=== PATIENT | male | born 1970 | race Caucasian/White ===

== ENCOUNTER 2018-02-18 18:13 | Outpatient (REF) | payer MEDICAID, SELFPAY ==
[2018-02-18 21:50] LABS: HCT 44.1 % (40.0-50.0); HGB 13.9 g/dL (13.5-17.5); Mean Corp. HGB Concentration 31.5 g/dL (32.0-36.0); Mean Platelet Volume 11.2 fL (8.0-11.0); Platelet Count 187 x1000/uL (130-400); RBC 4.64 m/cumm (4.50-6.00); RBC Distribution Width 13.1 % (11.8-14.1); White Blood Cell Count 6.14 k/cumm (4.4-10.8)
[2018-02-18 22:13] LABS: ALT 27 U/L (12-78); AST 36 U/L (15-37); Albumin 3.4 g/dL (3.4-5.0); Alkaline Phosphatase 101 U/L (46-116); Anion Gap 3.9 mmol/L (3-11); BUN 10 mg/dL (7-18); Bilirubin, Total 0.3 mg/dL (0.2-1.0); CO2 36.1 mmol/L (21.0-32.0); CREATININE 1.05 mg/dL (0.70-1.30); Calcium 8.9 mg/dL (8.5-10.1); Chloride 102 mmol/L (98-107); Glucose 94 mg/dL (70-100); Potassium 4.2 mmol/L (3.5-5.1); Sodium 142 mmol/L (136-145); Total Protein 7.2 g/dL (6.4-8.2)
== END 2018-02-18 18:33 ==
LOC: NCHCN 18:13
PROVIDERS: PCP Family Medicine; Visit Provider Nurse Practitioner Family
DX: K74.60 Unspecified cirrhosis of liver (principal); B19.20 Unspecified viral hepatitis C without hepatic coma; R60.0 Localized edema; R01.1 Cardiac murmur, unspecified; E66.9 Obesity, unspecified; Z13.1 Encounter for screening for diabetes mellitus
CPT/HCPCS: 80053; 85027; 83036; 85610

== ENCOUNTER 2021-06-27 21:57 | Outpatient (REF) | payer MEDICAID, SELFPAY ==
[2021-06-27 21:41] LABS: HCT 43.4 % (40.0-50.0); HGB 13.7 g/dL (13.5-17.5); MCH 28.6 pg (27.0-33.0); MCHC 31.6 % (32.0-36.0); MCV 91 fL (80-95); MPV 10.3 fL (8.0-11.0); Platelet Count 248 10^3/uL (130-400); RBC 4.79 10^6/uL (4.36-5.78); RDW 13.7 % (11.8-14.1); RDW-SD 46.5 fL; WBC 7.32 10^3/uL (4.4-10.8)
[2021-06-27 21:54] LABS: Prothrombin Time 9.9 sec (9.3-11.0)
[2021-06-27 21:56] LABS: Hemoglobin A1C 5.7 % (<5.7)
--- OUTSIDE RECORDS SUMMARY | 2021-06-27 22:00 | XMS_ITS | CCD ---
:1970 Author Care Team Providers Name Role Phone ERMELINDA HUNT ENGRAVER JEWELRY Attending Physician Unavailable Vital Signs Unknown or Not Available. Allergies Allergy Code Allergy Type Reaction Status [facility] [id number] Drug allergy rash, red line went up arm A ctive Procedures Procedure Code Procedure Type Date Arthrocentesis Aspir&/Inj Major Jt/Bursa w/o US CPT 11/09/2020 History of Immunizations Unknown or Not Available. Problems Unknown or Not Available. Results Unknown or Not Available. Active Medications Medication Code Dose Units Frequency Route Modification Start Date/Time Allopurinol 19720221 100 MILLIGRAMS DAILY ORAL 9 100MG Oral 11:52 Tablet Prescription Detail TAKE 100 MILLIGRAMS ORAL NGUYEN LY Folic Acid 1MG Oral [id number] 1 MILLIGRAMS DAILY BY MOUTH 06/27/2014 12:14 Tablet Prescription Detail TAKE 1 MILLIGRAMS BY MOUTH D AILY Methadone 5MG [id number] 5 MILLIGRAMS QD WITH 160MG ORAL 06/27/2014 12:14 Oral Tablet DOSE Prescription Detail TAKE 5 MILLIGRAMS ORAL QD WI TH 160MG DOSE Methadone HCl 40MG [id number] 160 MILLIGRAMS QD SEE OTHER ORAL 06/27/2014 12:14 Oral Tablet for METHADONE ORDER Suspension Prescription Detail TAKE 160 MILLIGRAMS ORAL QD SEE OTHER METHADONE ORDER PriLOSEC 20MG Oral Capsule, [id number] 20 MILLIGRAMS DAILY ORAL 06/27/2014 12:14 Delayed Release Prescription Detail TAKE 20 MILLIGRAMS ORAL LORETTA Y Medications Administered During Visit Unknown or Not Available. Encounters Encounter Diagnosis Diagnosis Code Start Date Bilateral primary osteoarthritis of knee M170 11/09/2020 Social History Smoking Status Code Start Date End Date Never smoker [id number] Patient Decision Aids Unknown or Not Available. Discharge Instructions You were admitted to [facility] on 11/09/2020 11:04 with a principal diagnosis of Bilateral primary osteoarth ritis of knee You had the following procedures done: Arthrocentesis Aspir&/Inj Major Jt/Bursa w/o US You were discharged from [facility] on 11/09/2020 11:04 Should you have any questions prior to d ischarge, please contact a member of your healthcare team. If you have left the ho spital and have any questions, please contact your primary care physician. Chief Complaint and Reason For Visit Unknown or Not Available. Function Status Unknown or Not Available. Plan of Care Unknown or Not Available. Referral/Transition of Care Unknown or Not Available.
--- OUTSIDE RECORDS SUMMARY | 2021-06-27 22:00 | XMS_ITS | CCD ---
:1970 Author Care Team Providers Name Role Phone ED ZAMAN MD Attending Physician Unavailable Vital Signs Unknown or Not Available. Allergies Allergy Code Allergy Type Reaction Status [facility] 585948 Drug allergy rash, red line went up arm A ctive Procedures Procedure Code Procedure Type Date Arthrocentesis Aspir&/[place] [address] CPT 10/13/2020 History of Immunizations Unknown or Not Available. Problems Unknown or Not Available. Results Unknown or Not Available. Active Medications Medication Code Dose Units Frequency Route Modification Start Date/Time Allopurinol 19720221 100 MILLIGRAMS DAILY ORAL 9 100MG Oral 11:52 Tablet Prescription Detail TAKE 100 MILLIGRAMS ORAL NGUYEN LY Folic Acid 1MG Oral [id number] 1 MILLIGRAMS DAILY BY MOUTH 06/27/2014 12:14 Tablet Prescription Detail TAKE 1 MILLIGRAMS BY MOUTH D AILY Methadone 5MG [id number] 5 MILLIGRAMS QD WITH 160MG ORAL 06/27/2014 12:14 Oral Tablet DOSE Prescription Detail TAKE 5 MILLIGRAMS ORAL QD WI TH 160MG DOSE Methadone HCl 40MG [id number] 160 MILLIGRAMS QD SEE OTHER ORAL 06/27/2014 12:14 Oral Tablet for METHADONE ORDER Suspension Prescription Detail TAKE 160 MILLIGRAMS ORAL QD SEE OTHER METHADONE ORDER PriLOSEC 20MG Oral Capsule, [id number] 20 MILLIGRAMS DAILY ORAL 06/27/2014 12:14 Delayed Release Prescription Detail TAKE 20 MILLIGRAMS ORAL LORETTA Y Medications Administered During Visit Unknown or Not Available. Encounters Encounter Diagnosis Diagnosis Code Start Date Bilateral primary osteoarthritis of knee M170 10/13/2020 Social History Smoking Status Code Start Date End Date Never smoker [id number] Patient Decision Aids Unknown or Not Available. Discharge Instructions You were admitted to [facility] on 10/13/2020 10:10 with a principal diagnosis of Bilateral primary osteoarth ritis of knee You had the following procedures done: Arthrocentesis Aspir&/Inj Major Jt/Bursa w/o US You were discharged from [facility] on 10/13/2020 10:10 Should you have any questions prior to [...]
--- OUTSIDE RECORDS SUMMARY | 2021-06-27 22:00 | XMS_ITS | CCD ---
:1970 Author Care Team Providers Name Role Phone ED ZAMAN MD Attending Physician Unavailable Vital Signs Unknown or Not Available. Allergies Allergy Code Allergy Type Reaction Status [facility] 563003 Drug allergy rash, red line went up arm A ctive Procedures Procedure Code Procedure Type Date Arthrocentesis Aspir&/[place] [address] CPT 10/27/2020 History of Immunizations Unknown or Not Available. Problems Unknown or Not Available. Results Unknown or Not Available. Active Medications Medication Code Dose Units Frequency Route Modification Start Date/Time Allopurinol 19720221 100 MILLIGRAMS DAILY ORAL 9 100MG Oral 11:52 Tablet Prescription Detail TAKE 100 MILLIGRAMS ORAL NGUYEN LY Folic Acid 1MG Oral 756280 1 MILLIGRAMS DAILY BY MOUTH 06/27/2014 12:14 Tablet Prescription Detail TAKE 1 MILLIGRAMS BY MOUTH D AILY Methadone 5MG [id number] 5 MILLIGRAMS QD WITH 160MG ORAL 06/27/2014 12:14 Oral Tablet DOSE Prescription Detail TAKE 5 MILLIGRAMS ORAL QD WI TH 160MG DOSE Methadone HCl 40MG 919087 160 MILLIGRAMS QD SEE OTHER ORAL 06/27/2014 12:14 Oral Tablet for METHADONE ORDER Suspension Prescription Detail TAKE 160 MILLIGRAMS ORAL QD SEE OTHER METHADONE ORDER PriLOSEC 20MG Oral Capsule, 702550 20 MILLIGRAMS DAILY ORAL 06/27/2014 12:14 Delayed Release Prescription Detail TAKE 20 MILLIGRAMS ORAL LORETTA Y Medications Administered During Visit Unknown or Not Available. Encounters Encounter Diagnosis Diagnosis Code Start Date Bilateral primary osteoarthritis of knee M170 10/27/2020 Social History Smoking Status Code Start Date End Date Never smoker [id number] Patient Decision Aids Unknown or Not Available. Discharge Instructions You were admitted to [facility] on 10/27/2020 15:00 with a principal diagnosis of Bilateral primary osteoarth ritis of knee You had the following procedures done: Arthrocentesis Aspir&/Inj Major Jt/Bursa w/o US You were discharged from [facility] on 10/27/2020 15:00 Should you have any questions prior to d ischarge, please contact a member of your healthcare team. If you have left the spital and have any questions, please contact your primary care physician. Chief Complaint and Reason For Visit Unknown or Not Available. Function Status Unknown or Not Available. Plan of Care Unknown or Not Available. Referral/Transition of Care Unknown or Not Available.
--- OUTSIDE RECORDS SUMMARY | 2021-06-27 22:00 | XMS_ITS | CCD ---
:1970 Author Care Team Providers Name Role Phone ED ZAMAN MD Attending Physician Unavailable Vital Signs Unknown or Not Available. Allergies Allergy Code Allergy Type Reaction Status [facility] 344277 Drug allergy rash, red line went up arm A ctive Procedures Procedure Code Procedure Type Date Arthrocentesis Aspir&/[place] [address] CPT 08/27/2020 History of Immunizations Unknown or Not Available. Problems Unknown or Not Available. Results Unknown or Not Available. Active Medications Medication Code Dose Units Frequency Route Modification Start Date/Time Allopurinol 19720221 100 MILLIGRAMS DAILY ORAL 9 100MG Oral 11:52 Tablet Prescription Detail TAKE 100 MILLIGRAMS ORAL NGUYEN LY Folic Acid 1MG Oral 520074 1 MILLIGRAMS DAILY BY MOUTH 06/27/2014 12:14 Tablet Prescription Detail TAKE 1 MILLIGRAMS BY MOUTH D AILY Methadone 5MG [id number] 5 MILLIGRAMS QD WITH 160MG ORAL 06/27/2014 12:14 Oral Tablet DOSE Prescription Detail TAKE 5 MILLIGRAMS ORAL QD WI TH 160MG DOSE Methadone HCl 40MG [id number] 160 MILLIGRAMS QD SEE OTHER ORAL 06/27/2014 12:14 Oral Tablet for METHADONE ORDER Suspension Prescription Detail TAKE 160 MILLIGRAMS ORAL QD SEE OTHER METHADONE ORDER PriLOSEC 20MG Oral Capsule, 225505 20 MILLIGRAMS DAILY ORAL 06/27/2014 12:14 Delayed Release Prescription Detail TAKE 20 MILLIGRAMS ORAL LORETTA Y Medications Administered During Visit Unknown or Not Available. Encounters Encounter Diagnosis Diagnosis Code Start Date Bilateral primary osteoarthritis of knee M170 08/27/2020 Social History Smoking Status Code Start Date End Date Never smoker [id number] Patient Decision Aids Unknown or Not Available. Discharge Instructions You were admitted to [facility] on 08/27/2020 08:56 with a principal diagnosis of Bilateral primary osteoarth ritis of knee You had the following procedures done: Arthrocentesis Aspir&/Inj Major Jt/Bursa w/o US You were discharged from [facility] on 08/27/2020 08:56 Should you have any questions prior to [...]
[2021-06-27 22:31] LABS: ALT 18 U/L (16-63); AST 19 U/L (15-37); Albumin 3.8 g/dL (3.4-5.0); Alkaline Phosphatase 82 U/L (46-116); Anion Gap 7.4 mmol/L (3-11); BUN 14 mg/dL (7-18); Bilirubin, Total 0.4 mg/dL (0.2-1.0); CO2 31.6 mmol/L (21.0-32.0); CREATININE 1.1 mg/dL (0.70-1.30); Calcium 8.6 mg/dL (8.5-10.1); Calculated LDL 94 mg/dL (<100); Chloride 101 mmol/L (98-107); Cholesterol 173 mg/dL (<200); Glucose 115 mg/dL (74-106); HDL Cholesterol 63 mg/dL (40-60); Magnesium 1.8 mg/dL (1.8-2.4); Potassium 4.1 mmol/L (3.5-5.1); Sodium 140 mmol/L (136-145); Total Protein 7.2 g/dL (6.4-8.2); Triglyceride 80 mg/dL (<150); Vitamin B12 318 pg/mL (193-986)
[2021-06-27 22:40] LABS: Uric Acid 6.6 mg/dL (3.5-7.2)
== END 2021-06-27 21:58 | disposition home or self-care (01) ==
LOC: NCHCN 21:57
PROVIDERS: PCP Family Medicine; Visit Provider Nurse Practitioner Family
DX: R73.03 Prediabetes (principal); K76.0 Fatty (change of) liver, not elsewhere classified; K21.9 Gastro-esophageal reflux disease without esophagitis; F10.10 Alcohol abuse, uncomplicated; Z86.39 Personal history of other endocrine, nutritional and metabolic disease
CPT/HCPCS: 80053; 80061; 85027; 82607; 83036; 83735; 84550; 85610

== ENCOUNTER 2022-09-27 14:17 | Outpatient (REF) | payer MEDICAID, SELFPAY ==
[2022-09-27 21:36] LABS: HCT 41.4 % (40.0-50.0); HGB 13.8 g/dL (13.5-17.5); MCH 29.9 pg (27.0-33.0); MCHC 33.3 % (32.0-36.0); MCV 90 fL (80-95); MPV 9.6 fL (8.0-11.0); Platelet Count 267 10^3/uL (130-400); RBC 4.62 10^6/uL (4.36-5.78); RDW 13.4 % (11.8-14.1); WBC 8.68 10^3/uL (4.4-10.8)
[2022-09-27 21:59] LABS: INR 0.9 (0.9-1.1); Prothrombin Time 9.4 sec (9.3-11.0)
[2022-09-27 22:08] LABS: Hemoglobin A1C 5.5 % (<5.7)
[2022-09-27 22:15] LABS: ALT 19 U/L (16-63); AST 29 U/L (15-37); Albumin 3.1 g/dL (3.4-5.0); Alkaline Phosphatase 71 U/L (46-116); Anion Gap 7.6 mmol/L (3-11); BUN 13 mg/dL (7-18); Bilirubin, Total 0.6 mg/dL (0.2-1.0); CO2 32.4 mmol/L (21.0-32.0); CREATININE 0.9 mg/dL (0.70-1.30); Calcium 9.1 mg/dL (8.5-10.1); Chloride 103 mmol/L (98-107); Estimated GFR 102.12 (mL/min/1.73m2); Glucose 109 mg/dL (74-106); Magnesium 1.9 mg/dL (1.8-2.4); Potassium 3.9 mmol/L (3.5-5.1); Sodium 143 mmol/L (136-145); Total Protein 7.4 g/dL (6.4-8.2); Vitamin B12 296 pg/mL (193-986)
[2022-09-29 10:29] LABS: Hepatitis C Ab w Rflx HCV PCR Reactive (Negative)
[2022-10-02 11:29] LABS: HCV RNA Qualitative Undetected (Undetected)
== END 2022-09-27 14:18 | disposition home or self-care (01) ==
LOC: NCHCN 14:17
PROVIDERS: PCP Family Medicine; Visit Provider Registered Nurse
DX: B19.20 Unspecified viral hepatitis C without hepatic coma (principal); R73.03 Prediabetes; Z79.899 Other long term (current) drug therapy
CPT/HCPCS: 80053; 85027; 86803; 87522; 82607; 83036; 83735; 85610

== ENCOUNTER 2024-03-03 08:33 | Emergency (ER) | payer MEDICAID, SELFPAY ==
[2024-03-03 08:52] VITALS: BP 150/84; PULSE 74; RESP 20; TEMP 36.9; O2SAT 94
--- NOTE | 2024-03-03 08:59 | ED.GENADUL_ITS ---
Discharge Plan Disposition Patient Disposition: Home Condition: Stable Discharge Details Clinical Impression: Influenza A Primary Care Provider: Bear Healy ED Provider: Sotero Bell Home Meds and New Rx's Prescriptions: New ondansetron 4 mg tablet,disintegrating 4 mg PO Q8H PRNQty: 30 0RF albuterol sulfate 90 mcg/actuation HFA aerosol inhaler 2 puff inhalation 6XD PRNQty: 6.7 0RF potassium chloride 20 mEq tablet extended release 20 meq PO DAILY 7 Days Qty: 7 0RF Continued omeprazole 40 mg capsule,delayed release(DR/EC) 40 mg PO DAILY methadone [Methadose] 10 mg/mL concentrate 165 mg PO DAILY Discharge Instructions Instructions: Hypokalemia, Albuterol, Ondansetron, Potassium Bicarbonate and Potassium Citrate, Flu, Adult ED Additional Instructions: You were seen in the emergency department for your nausea without intractable vomiting. You have a cough, you tested positive for flu, I am sending you home with a prescription for Zofran which should help with nausea, take this 20 to 30 minutes prior to p.o. intake, take the prescribed potassium supplements for the next week, focus on eating nutritious diet. I have sent you home with an albuterol inhaler for any symptomatic shortness of breath. Please return for any intractable nausea or vomiting, severe respiratory distress or other emergent concerns. Please use therapeutic dosing of Tylenol (acetamenophen) & Advil (ibuprofen) in an alternating fashion as follows: Take 1000mg of Tylenol every 6 hours without missing doses- that is 4 times per day. [place] in between the Tylenol dosings, take 400-600mg of Advil also on a 6 hour schedule, that is also 4 times per day. The daily maximum dosing of Tylenol is 4000mg, and the daily maximum dosing of Advil is 2400mg. This is safe to do for weeks. Please note that some common cold medications & prescription pain medications may contain acetamenophen and you need to read OTC drug labels and factor that in to maximum daily dosings. Referrals: Bear Healy [Primary Care Provider] - Discharge Data Discharge Date/Time-TO BE ENTERED AT DEPARTURE: 03/03/24 11:23 HPI General Date/Time Provider Initiated Documentation: 03/03/24 08:38 . HPI Narrative: 53 year-old male presents to ED today by POV/ambulating with a chief complaint of abdominal pain, nausea/vomiting, coughing with onset 3 days ago. Quality described as generalized malaise, dry heaves, cough without shortness of breath, fatigue, no radiation to chest pain, bowel/urinary changes, respiratory distress, high fevers. Severity is described as moderate. Palliating factors include attempted dramamine without relief. Provoking factors include nothing specific. Events leading up to the incident/Associated Symptoms: Patient has no received a flu shot this year. Patient not anticoagulated. Related Data Home Medications ?Medication ?Instructions ?Recorded ?Confirmed albuterol sulfate 90 mcg/actuation 2 puff inhalation 6XD PRN #6.7 03/03/24 aerosol inhaler grams methadone 10 mg/mL oral 165 mg PO DAILY 03/03/24 03/03/24 concentrate (Methadose) omeprazole 40 mg capsule,delayed 40 mg PO DAILY 03/03/24 03/03/24 release ondansetron 4 mg disintegrating 4 mg PO Q8H PRN #30 tabs 03/03/24 tablet potassium chloride 20 mEq 20 meq PO DAILY 7 days #7 tabs 03/03/24 tablet,extended release Previous Rx's ?Medication ?Instructions ?Recorded albuterol sulfate 90 mcg/actuation 2 puff inhalation 6XD PRN #6.7 03/03/24 aerosol inhaler grams ondansetron 4 mg disintegrating 4 mg PO Q8H PRN #30 tabs 03/03/24 tablet potassium chloride 20 mEq 20 meq PO DAILY 7 days #7 tabs 03/03/24 tablet,extended release Allergies Allergy/AdvReac Type Severity Reaction Status Date / Time No Known Allergies Allergy Unverified 03/03/24 08:54 General Stated Complaint: Nausea/Vomit/Diar AMARIS: 3 Review of Systems All systems reviewed & are unremarkable except as noted in HPI and below Exam Narrative Exam Narrative: GENERAL APPEARANCE: Well-nourished, non-toxic, awake and alert, atraumatic, no acute distress. SKIN: Warm, pink, dry, intact, without rashes/lesions/ulcerations. HEAD: Normocephalic, atraumatic, normal hair distribution for gender/age. EYES: Normal conjunctiva, no exudates on lids/lashes. ENT: Nares patent, no circumoral cyanosis, no facial swelling NECK: Supple, trachea midline, painless cervical ROM. LUNGS/CHEST: Lungs CTA bilaterally- no rhonchi/rales/wheezes diffusely, non- labored respirations, normal A/P diameter, symmetrical expansion, no chest wall deformity HEART (CV/PV): Regular rate and rhythm without murmur, no peripheral edema, no JVD. ABDOMEN: Soft, non-distended, no guarding, no tenderness diffusely. MSK: Normal ROM, no swelling/deformity to bilateral UEs or LEs, moving all extremities without weakness, no cyanosis, spine midline without tenderness, normal curvature. NEURO: Mental Status AAOx4 - alert to person, place, time, events No facial droop, no forehead involvement. Motor: No focal weakness - strength 5/5 in bilateral UEs and LEs, proximal and distal, symmetric. Sensory: sensation intact to light touch globally. Gait normal: patient ambulated without ataxia into ED room. PSYCH: euthymic, cooperative, pleasant, appropriate speech Course Vital Signs Vital signs: Vital Signs Temperature 36.9 C 03/03/24 08:52 Pulse 74 03/03/24 08:52 Respiratory Rate 20 03/03/24 08:52 Blood Pressure 150/84 H 03/03/24 08:52 Pulse Oximetry 94 03/03/24 08:52 Temperature 36.9 C 03/03/24 08:52 Temperature Source Oral 03/03/24 08:52 Pulse 74 03/03/24 08:52 Respiratory Rate 20 03/03/24 08:52 Blood Pressure 150/84 H 03/03/24 08:52 Blood Pressure Position Sitting 03/03/24 08:52 Pulse Oximetry 94 03/03/24 08:52 Oxygen Delivery Method Room Air 03/03/24 08:52 Oxygen Flow Rate 0 03/03/24 08:52 Pain Level 10 03/03/24 08:52 Medical Decision Making This dictation utilizes [id number] dictation software and may contain unedited grammatical errors. 53 year-old male presents to ED today by POV/ambulating with a chief complaint of abdominal pain, nausea/vomiting, coughing with onset 3 days ago. Quality described as generalized malaise, dry heaves, cough without shortness of breath, fatigue, no radiation to chest pain, bowel/urinary changes, respiratory distress, high fevers. Severity is described as moderate. Palliating factors include attempted dramamine without relief. Provoking factors include nothing specific. Events leading up to the incident/Associated Symptoms: Patient has no received a flu shot this year. Patients' medical history: Negative, otherwise healthy but does not go to the doctor regularly. Family and social history: Denies any recent travel or sick contacts. Pertinent exam findings / vital signs include lungs CTA, benign abdomen, benign cardiopulmonary exam, neuro intact. Differential / pathologies of concern include URI, viral syndrome, gastroenteritis, not likely biliary colic. Diagnostic studies of: -CBC, CMP, lactate, magnesium, lipase, UA, respiratory panel PCR. -CBC benign -CMP shows mild hypokalemia, prescribing 1 week of p.o. potassium supplements -Magnesium mildly low at 1.7 will replete with normal p.o. intake -Lipase negative -Lactate negative -UA shows hematuria, I recommend the patient follow-up with his PCP/have his urine rechecked and possible referral to urology at that time -PCR swab shows positive influenza A Interventions of: -4 mg Zofran with relief of nausea. ED Course/Assessment/Plan: 53-year-old male with fatigue and dry heaves and mild cough without respiratory distress is positive for influenza A, laboratory workup is benign, I stressed strict return criteria for worsening respiratory status or inability to tolerate p.o. intake, I did provide Zofran by prescription as well as albuterol inhaler, outside window for Tamiflu. Findings not consistent with hypoxic respiratory failure, inability to tolerate p.o. intake. Disposition of influenza A. Patient verbalized understanding of the plan and return to ED criteria and engaged in shared decision making. Medical Records Medical records reviewed: Yes I reviewed the patient's medical records. Lab Data Lab results reviewed: Yes I reviewed the patient's lab results. Labs: Laboratory Tests Range/Units 03/03/24 03/03/24 03/03/24 08:56 09:37 09:48 WBC (4.4-10.8) 10^3/uL 6.82 RBC (4.36-5.78) 10^6/uL 5.61 Hgb (13.5-17.5) g/dL 16.1 Hct (40.0-50.0) % 48.9 MCV (80-95) fL 87 MCH (27.0-33.0) pg 28.7 MCHC (32.0-36.0) % 32.9 RDW (11.8-14.1) % 13.5 Plt Count (130-400) 10^3/uL 150 MPV (8.0-11.0) fL 10.3 Immature Gran % % 0.4 Neutrophils % % 79.1 Lymphocytes % % 9.5 Monocytes % % 10.9 Eosinophils % % 0.0 Basophils % % 0.1 Nucleated RBC % (0.0-0.3) % 0.0 Absolute Neutrophils (1.2-6.7) 10^3/uL 5.39 Absolute Lymphocytes (1.2-3.4) 10^3/uL 0.65 L Absolute Monocytes (0.1-0.8) 10^3/uL 0.74 Absolute Eosinophils (0.0-0.7) 10^3/uL 0.00 Absolute Basophils (0.0-0.2) 10^3/uL 0.01 VBG Lactate (<or=2.0) mmol/L 1.4 Sodium (136-145) mmol/L 140 Potassium (3.5-5.1) mmol/L 3.2 L Chloride (98-107) mmol/L 100 Carbon Dioxide (21.0-32.0) mmol/L 36.2 H Anion Gap (3-11) mmol/L 3.8 BUN (7-18) mg/dL 11 Creatinine (0.70-1.30) mg/dL 0.9 Est GFR (CKD-EPI 2020) (mL/min/1.73m2) 101.49 Glucose (74-106) mg/dL 126 H Calcium (8.5-10.1) mg/dL 8.8 Magnesium (1.8-2.4) mg/dL 1.7 L Total Bilirubin (0.2-1.0) mg/dL 0.50 AST (15-37) U/L 44 H ALT (16-63) U/L 29 Alkaline Phosphatase (46-116) U/L 79 Total Protein (6.4-8.2) g/dL 7.4 Albumin (3.4-5.0) g/dL 3.1 L Lipase (<78) U/L 27 Urine Color (Yellow) Yellow Urine Clarity (Clear) Clear Urine pH (5-8) 6.0 Ur Specific [place] (1.005-1.025) 1.025 Urine Protein (Neg-Trace) mg/dL >=300 H Urine Ketones (Negative) mg/dL Negative Urine Blood (Negative) Large H Urine Nitrite (Negative) Negative Urine Bilirubin (Negative) Small H Urine Urobilinogen (Up to 0.2) mg/dL >=8.0 H Ur Leukocyte Esterase (Negative) Negative Urine RBC (0-2) HPF 20-50 H Urine WBC (0-5) HPF 0-2 Ur Epithelial Cells (Negative) HPF Rare Urine Crystals (Negative) HPF Negative Urine Bacteria (Negative) HPF Many Urine Casts (Negative) LPF Negative Urine Mucus (Negative) Trace Ur Culture Indicated? No Urine Glucose (Negative) mg/dL Negative COVID-19 Source Nasopharynx SARS-CoV-2 (PCR) (Negative) Negative Influenza Type A (PCR) (Negative) Positive A Influenza Type B (PCR) (Negative) Negative RSV (PCR) (Negative) Negative Quality:SDOH Health Related Social Needs: No Data to Display PFSH All Active Problems (Updated 03/03/24 @ 10:54 by HAILEE [place]) Influenza A (Acute) Social History Smoking risk assessment performed?: No
[2024-03-03] MEDS: Ondansetron O.D.T. 4 MG TABEF PO (09:47)
[2024-03-03 09:49] LABS: Lactate 1.4 mmol/L (<or=2.0)
[2024-03-03 09:51] LABS: Abs Immature Grans 0.03 10^3/uL (0.0-0.06); Absolute Basophil Count 0.01 10^3/uL (0.0-0.2); Absolute Lymphocyte Count 0.65 10^3/uL (1.2-3.4); Absolute Monocyte Count 0.74 10^3/uL (0.1-0.8); Absolute Neutrophil Count 5.39 10^3/uL (1.2-6.7); Basophils % 0.1 %; HCT 48.9 % (40.0-50.0); HGB 16.1 g/dL (13.5-17.5); Immature Grans % 0.4 %; Lymphocytes % 9.5 %; MCH 28.7 pg (27.0-33.0); MCHC 32.9 % (32.0-36.0); MCV 87 fL (80-95); MPV 10.3 fL (8.0-11.0); Monocytes % 10.9 %; Neutrophils % 79.1 %; Platelet Count 150 10^3/uL (130-400); RBC 5.61 10^6/uL (4.36-5.78); RDW 13.5 % (11.8-14.1); RDW-SD 43.5 fL; WBC 6.82 10^3/uL (4.4-10.8)
[2024-03-03 09:55] LABS: Bilirubin Small (Negative); Blood Large (Negative); Clarity Clear (Clear); Glucose Negative (Negative); Ketones Negative (Negative); Leukocyte Esterase Negative (Negative); Nitrite Negative (Negative); Specific Gravity 1.025 (1.005-1.025); Urobilinogen >=8.0 mg/dL (Up to 0.2)
[2024-03-03 10:01] LABS: Bacteria Many HPF (Negative); C & S Indicated? No; Casts Negative LPF (Negative); Crystals Negative HPF (Negative); Epithelial Cells Rare HPF (Negative); Mucus Trace (Negative); RBC 20-50 HPF (0-2); WBC 0-2 HPF (0-5)
[2024-03-03 10:11] LABS: ALT 29 U/L (16-63); AST 44 U/L (15-37); Albumin 3.1 g/dL (3.4-5.0); Alkaline Phosphatase 79 U/L (46-116); Anion Gap 3.8 mmol/L (3-11); BUN 11 mg/dL (7-18); CO2 36.2 mmol/L (21.0-32.0); CREATININE 0.9 mg/dL (0.70-1.30); Calcium 8.8 mg/dL (8.5-10.1); Chloride 100 mmol/L (98-107); Estimated GFR 101.49 (mL/min/1.73m2); Glucose 126 mg/dL (74-106); Lipase 27 U/L (<78); Magnesium 1.7 mg/dL (1.8-2.4); Potassium 3.2 mmol/L (3.5-5.1); Sodium 140 mmol/L (136-145); Total Protein 7.4 g/dL (6.4-8.2)
[2024-03-03 10:27] LABS: COVID-19 PCR Negative (Negative); Influenza A PCR Positive (Negative); Influenza B PCR Negative (Negative); RSV PCR Negative (Negative); Source Nasopharynx
[2024-03-03 11:17] VITALS: BP 135/100; PULSE 95; RESP 18; TEMP 36.3; O2SAT 92
[2024-03-03 11:19] VITALS: BP 135/100; PULSE 95; RESP 18; TEMP 36.3; O2SAT 92
== END 2024-03-03 11:23 | disposition home or self-care (01) ==
PROVIDERS: Emergency Provider Physician Assistant; PCP Family Medicine
DX: J10.1 Influenza due to other identified influenza virus with other respiratory manifestations (principal); R05.1 Acute cough; R11.0 Nausea
CPT/HCPCS: 36415; 80053; 83690; 87637; 99283; 81003; 81015; 83605; 83735; 85025

== ENCOUNTER 2024-06-23 15:57 | Outpatient (REF) | payer MEDICAID, SELFPAY ==
[2024-06-23 22:10] LABS: HGB 13.7 g/dL (13.5-17.5); MCH 29.3 pg (27.0-33.0); MCHC 32.6 % (32.0-36.0); MCV 90 fL (80-95); MPV 10.5 fL (8.0-11.0); Platelet Count 185 10^3/uL (130-400); RBC 4.67 10^6/uL (4.36-5.78); RDW 13.3 % (11.8-14.1); WBC 5.68 10^3/uL (4.4-10.8)
[2024-06-23 22:30] LABS: Hemoglobin A1C 5.5 % (<5.7); INR 1.1 (0.9-1.1); Prothrombin Time 10.7 sec (9.1-11.1)
[2024-06-23 22:52] LABS: ALT 19 U/L (16-63); AST 28 U/L (15-37); Albumin 3.5 g/dL (3.4-5.0); Alkaline Phosphatase 69 U/L (46-116); BUN 17 mg/dL (7-18); Bilirubin, Total 0.7 mg/dL (0.2-1.0); Calcium 9.2 mg/dL (8.5-10.1); Chloride 105 mmol/L (98-107); Estimated GFR 88.88 (mL/min/1.73m2); Glucose 103 mg/dL (74-106); Sodium 143 mmol/L (136-145); TSH 2.22 uIU/mL (0.36-3.74); Total Protein 7.1 g/dL (6.4-8.2)
[2024-06-24 20:59] LABS: Calculated LDL 72 mg/dL (<100); Cholesterol 161 mg/dL (<200); HDL Cholesterol 65 mg/dL (>or=40); Triglyceride 121 mg/dL (<150); Vitamin B12 274 pg/mL (193-986)
== END 2024-06-23 15:58 | disposition home or self-care (01) ==
LOC: NCHCN 15:57
PROVIDERS: PCP Family Medicine; Visit Provider Nurse Practitioner Family
DX: K74.60 Unspecified cirrhosis of liver (principal); R73.03 Prediabetes; K21.9 Gastro-esophageal reflux disease without esophagitis; Z13.29 Encounter for screening for other suspected endocrine disorder; M10.9 Gout, unspecified; E78.5 Hyperlipidemia, unspecified
CPT/HCPCS: 80053; 80061; 85027; 82607; 83036; 84443; 84550; 85610